=== PATIENT | female | born 1990 ===

== ENCOUNTER 2025-08-22 06:07 | Day surgery (SDC) | payer OTHER, SELFPAY ==
[2025-08-22] VITALS (7 sets, daily range): BP systolic 99–116; BP diastolic 56–87; BMI 22.3
[2025-08-22] MEDS: NORMOSOL-R/PLASMALYTE-A 1000 IV (12:00)
[2025-08-22] MEDS: TYLENOL 1000 MG PO (12:16)
[2025-08-22] MEDS: EMEND 40 MG PO (13:15)
--- NOTE | 2025-08-22 15:32 | W.IMMPOSTOP ---
Surgical Immed Post Op Note
-
Primary Surgeon: Paul Nieves MD
Assisting Surgeon:
Pre-op Diagnosis: left elbow lateral epicondyle fracture
Post-op Diagnosis: left elbow lateral epicondyle fracture
Procedure Performed: open reduction internal fixation left lateral epicondyle
Anesthesia Type: general with regional
Specimen / Cultures: none
Estimated Blood Loss: 10mL
Complications: none apparent
Operative Findings: lateral epicondyle fracture
Implants: [place] 4x42mm cannulated partially threaded screw, 5x20mm cannulated partially threaded screw
Tourniquet time: 69 minutes @ 250mm Hg
Operative dictation #: [id number]
[2025-08-22] MEDS: ZOFRAN 4 MG IV (15:45)
== END 2025-08-22 16:55 | disposition home or self-care (01) ==
LOC: SDS 06:07
PROVIDERS: ATTENDING PHYSICIAN Student in an Organized Health Care Education/Training Program
DX: S42.432A Displaced fracture (avulsion) of lateral epicondyle of left humerus, initial encounter for closed fracture (principal); W19.XXXA Unspecified fall, initial encounter; Y93.01 Activity, walking, marching and hiking
CPT/HCPCS: 24685; C1713; 73070